=== PATIENT | female | born 1955 | race Caucasian/White ===

== ENCOUNTER 2019-04-07 09:32 | Outpatient (REF) | payer BC, SELFPAY ==
--- NOTE | 2019-04-07 08:40 | PAPFT_PTH ---
PATIENT: Edelmira Ac LOC: [facility] U#:[id number] AGE/SX: 63/F ROOM: RE04/07/[address]: GONZALEZ Llanes : 1955 BED: DIS: 04/07/2019 SPEC #: [id number] RECD: 04/07/19 12:52 STATUS: OBED REQ #: [id number] VAUGHN: 04/07/19 08:[address]: Missy Canales DEPT: [facility] Cytology RECD BY: Angela Bonilla ENTERED: 04/07/19 12:52 SP TYPE: PAPFT PAULO DR: None Tissues: 1 - CX/ENDOCX FOR PAP SMEARS Procedures: PAP THIN PREP/UVM Screening HPV DNA PROBE Comments: [id number]
== END 2019-04-07 09:52 ==
LOC: LBN 09:32
PROVIDERS: Visit Provider Nurse Practitioner Family
DX: Z12.4 Encounter for screening for malignant neoplasm of cervix (principal); Z11.51 Encounter for screening for human papillomavirus (HPV)
CPT/HCPCS: 88142; 87624

== ENCOUNTER 2019-04-21 05:48 | Emergency (ER) | payer BC, SELFPAY ==
[2019-04-21 05:54] VITALS: BP 152/71; PULSE 107; RESP 18; TEMP 37.2; O2SAT 98
--- NOTE | 2019-04-21 05:56 | W.ED.GENAD ---
Discharge Plan Disposition Patient Disposition: HOME Condition: Good Discharge Details Chief Complaint: Orthopedic Clinical Impression: Great toe pain, Stress fracture Primary Care Provider: None,None ED Provider: David Villanueva Home Meds and New Rx's Prescriptions: No Action No Known Home Meds RF: 0 Discharge Instructions Instructions: Swollen Joint (ED) Additional Instructions: At this time it is concerning that you have a small stress fracture for your toe. For the next 3 to 5 days please remain nonweightbearing for your toe. Use the crutches as directed. I would recommend advancing in 3 to 5-day intervals, gradually transitioning to a walking boot with crutches, and then the walking boot alone. Once he transition out of the walking boot I would recommend taping your big toe and second toe together. Please take Tylenol and Motrin as needed for pain. If you notice any worsening of your symptoms, or any new symptoms such as vomiting, diarrhea, fever, chills, shortness of breath, chest pain, numbness, weakness, or fainting , please return immediately to the emergency department for reevaluation. Please follow up with your primary care provider as soon as possible for reassessment and reevaluation. As always, it was a pleasure participating in your medical care today. Medical Decision Making This is a pleasant 63-year-old female who last night at 11 PM hit her right great toe on stairs when she was walking up. She denies any other trauma or significant pain. Exam demonstrates mild to moderate pain at the proximal phalanx/distal metatarsal. Toe appears slightly shortened compared to the left great toe. Differential is highest for small fracture, or intra-articular injury. The patient still does have some flexion and extension strength however it is notably limited secondary to pain. Doubt tendon rupture. The patient does not want any medications for pain. We will give her a packet of ice for the swelling. We will get an x-ray and reassess. 6:42 AM The patient's x-ray has returned and per virtual radiology there is no evidence of acute fracture however her signs and symptoms are certainly concerning for mild stress fracture. We will treat conservatively recommend nonweightbearing for the next 3 to 5 days with crutches, and gradual transition to a walking boot. Discussed red flags which to return. I have extensively reviewed the treatment plan and discharge instructions with the patient. I have addressed all patient concerns at this time. The patient was made aware of what symptoms to monitor for that would warrant a return to the emergency department. Discussed the plan with the patient, they demonstrate verbal understanding and agreement with our assessment and plan at this time. FINDINGS: Bones/joints: Normal. Soft tissues: Normal. IMPRESSION: No acute findings. Thank you for allowing us to participate in the care of your patient. Dictated and Authenticated by: Kurtis Decker MD 04/21/2019 6:31 AM Eastern Time ([place] & [place]) HPI General Date/Time Provider Initiated Documentation: 04/21/19 05:50. HPI Narrative: This is a 63-year-old female with no past medical history who presents today for evaluation of pain in her right great toe. She states that at 11 PM last night she was walking up the stairs when she tripped and caught her toe on the hard stairs. Since then she has had mild to moderate pain at the proximal aspect of the toe, worse with bearing weight. Slightly improved by cold water/ice water dip, but otherwise unimproved. She denies any numbness tingling or weakness. She has no other complaints at this time. She did not hit her head, she did not lose consciousness, she does not take blood thinners. Related Data Home Medications Medication Instructions Recorded Confirmed Unknown [No Known Home Meds] 03/08/18 04/21/19 Allergies Allergy/AdvReac Type Severity Reaction Status Date / Time No Known Allergies Allergy Unverified 04/21/19 05:57 Review of Systems All systems reviewed & are unremarkable except as noted in HPI and below [facility] Medical History (Updated 03/08/18 @ 13:13 by Missy Canales NP) Atrophic vaginitis (Acute 12/27/12) Family history of breast cancer (Acute 01/06/16) Mother and Sister Social History Smoking/Tobacco Use Status: Never Alcohol Intake: never Substance use type: does not use Do you feel safe at home: Yes Do you feel safe in your relationship?: Yes History History 1 Para Hx # Term Pregnancies 1 Multiple births Hx # Pregnancies Ectopic pregnancies AB induced Hx Number of Living Children AB spontaneous Exam Narrative Exam Narrative: 1.Const: Well-nourished, Well-developed, appearing stated age 2.Eyes: PERRL, no conjunctival injection, and symmetrical lids. 3.ENT: Atraumatic external nose and ears. Moist MM. Neck: Symmetric, trachea midline, No thyromegaly. 4.CVS: +S1/S2, No murmurs or gallops. Peripheral pulses 2+ and equal in all extremities. Brisk capillary refill in all extremities. 5.RESP: Unlabored respiratory effort. Clear to auscultation bilaterally. No wheezes rales or rhonchi 6.GI: Soft, Nontender/Nondistended, No hepatosplenomegaly. No guarding or rebound. 7.MSK: Normal upper and lower extremities, evaluation of the right great toe demonstrates no significant deformity however it is slightly shortened in comparison to the left great toe. Mild to moderate pain with active and passive flexion and extension. No evidence of rotation. Pain seems to be located at the proximal phalanx, and the distal metatarsal. No other pain or deformity for the rest of the foot, ankle, calf olson or knee. Left knee: The knee is stable to varus, valgus, and anterior drawer stress. No deformity. Patellar grind test is negative. Ramirez test is negative for pain. Patient is able to walk without difficulty. No edema or warmth to the joint. No ttp to the patella, tibial plateau, or fibular head. 8.Skin: Warm, Dry. No rashes or lesions. 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 Sensation grossly intact, no focal neurologic deficits. 10.Psych: (AAO) x3. Appropriate mood and affect
--- NOTE | 2019-04-21 06:20 | DI.RAD_ITS ---
EXAM: XR TOE RT GREAT INDICATION: pain at proximal phalange,FELL GOING UPSTAIRS COMPARISON: No exams were available for comparison TECHNIQUE: 2D digital imaging was performed. FINDINGS: No acute fracture or dislocation is present. The soft tissues are unremarkable. IMPRESSION: No acute abnormality.
--- NOTE | 2019-04-21 06:32 | DI.VRAD_ITS ---
PROCEDURE INFORMATION: Exam: XR Right Toe(s) Exam date and time: 04/21/2019 6:17 AM Clinical history: 63 years old, female; Toes; Right; Patient HX: Fell up stairs, proximal great toe pain TECHNIQUE: Imaging protocol: XR Right toes. Views: Minimum 2 views. COMPARISON: No relevant prior studies available. FINDINGS: Bones/joints: Normal. Soft tissues: Normal. IMPRESSION: No acute findings. Dictated and Authenticated by: Kurtis Decker MD. Ordering:MARYELLEN Hernandez MD
== END 2019-04-21 06:40 | disposition home or self-care (01) ==
PROVIDERS: Emergency Provider Student in an Organized Health Care Education/Training Program
DX: M79.674 Pain in right toe(s) (principal); W10.8XXA Fall (on) (from) other stairs and steps, initial encounter
CPT/HCPCS: 29515; 99283; 73660; 99282; E0114; L4361

== ENCOUNTER 2021-11-29 16:33 | Outpatient (REF) | payer MEDICARE, BC, SELFPAY | END 2021-11-29 16:34 | disposition home or self-care (01) | LOC: LBN 16:33 | PROVIDERS: Visit Provider Advanced Practice Midwife | DX: N76.2 Acute vulvitis (principal); R30.0 Dysuria | CPT/HCPCS: 87077; 87086; 87186; 87480; 87510; 87660 ==